=== PATIENT | female | born 1975 | race Hispanic/Latino ===

== ENCOUNTER 2018-02-19 19:24 | Inpatient (IN) | payer MEDICAID ==
[2018-02-19 20:37] LABS: BASO # 0.1 K/uL (0.0-0.2); BASO % 1.5 % (0.0-2.0); EOS % 0.4 % (0.0-4.0); HEMOGLOBIN 10.9 g/dL (11.0-16.0); LYMPH % 41.3 % (20.0-40.0); MEAN CELL VOLUME 78.5 fL (81.0-99.0); MEAN CORPUSCULAR HEMOGLOBIN 25.1 pg (27.0-31.0); MONO # 0.2 K/uL (0.0-0.8); MONO % 4.5 % (0.0-10.0); NEUT # 2.5 K/uL (1.8-7.0); NEUT % 52.3 % (50.0-75.0); RBC 4.34 Mil/uL (3.80-5.20); RED CELL DISTRIBUTION WIDTH 19.1 % (11.5-14.5); WHITE BLOOD COUNT 4.8 K/uL (4.8-10.8)
[2018-02-19 20:40] LABS: HCG,QUALITATIVE URINE NEGATIVE (NEGATIVE)
[2018-02-19 20:43] LABS: SQUAMOUS EPITHIAL 10 /hpf (0-5); URINE BACTERIA FEW (<OCC); URINE BILIRUBIN NEGATIVE (NEGATIVE); URINE BLOOD 3+ (NEGATIVE); URINE CLARITY Hazy (Clear); URINE COLOR Red (YELLOW); URINE GLUCOSE (UA) NORMAL (Normal); URINE LEUKOCYTE ESTERASE 2+ Leu/uL (Negative); URINE PROTEIN 1+ mg/dL (NEGATIVE); URINE UROBILINOGEN NORMAL mg/dL (0.2-1.0)
[2018-02-19 20:47] LABS: BARBITURATES, UR NEGATIVE (NEGATIVE); BENZODIAZEPINES, UR NEGATIVE (NEGATIVE); OPIATES, UR NEGATIVE (NEGATIVE); PHENCYCLIDINE, UR NEGATIVE (NEGATIVE)
--- NOTE | 2018-02-19 20:47 | C.PDOC ---
History Of Present Illness 42 year old female presents to the ED requesting detox for alcohol abuse. Patient is prescreened, states she drinks large volumes of alcohol. Patient reports her last drink was today [employer]. Patient denies SI/HI, hallucinations, injury, fall, trauma. Time Seen by Provider: 02/19/18 20:11 Chief Complaint (Nursing): Substance Abuse History Per: Patient History/Exam Limitations: intoxication Onset/Duration Of Symptoms: Hrs Current Symptoms Are (Timing): Still Present Suicide/Self Injury Attempted (Context): None Modifying Factor(s): Alcohol, Other Associated Symptoms: denies: Depression, Suicidal Thoughts, Suicidal Plan Recent travel outside of the [place]: No Additional History Per: Patient Past Medical History Reviewed: Historical Data, Nursing Documentation, Vital Signs Vital Signs: Last Vital Signs Temp 98.1 F 02/19/18 19:44 Pulse 110 H 02/19/18 19:44 Resp 20 02/19/18 19:44 BP 121/85 02/19/18 19:44 Pulse Ox 97 02/19/18 19:44 - Medical History PMH: Bipolar Disorder Surgical History: No Surg Hx Family History: States: Unknown Family Hx - Social History Hx Alcohol Use: No Hx Substance Use: No - Immunization History Hx Tetanus Toxoid Vaccination: No Hx Influenza Vaccination: No Hx Pneumococcal Vaccination: No Review Of Systems Constitutional: Negative for: Fever, Chills Cardiovascular: Negative for: Chest Pain Respiratory: Negative for: Cough, Shortness of Breath Gastrointestinal: Negative for: Nausea, Vomiting, Abdominal Pain Skin: Negative for: Rash Psych: Negative for: Depression, Suicidal ideation Physical Exam - Physical Exam Appears: Non-toxic, No Acute Distress, Other ( female, AOB, intoxicated) Skin: Normal Color, Warm, Dry Head: Atraumatic, Normacephalic Eye(s): bilateral: Normal Inspection Neck: Normal ROM, Supple Chest: Symmetrical Cardiovascular: Rhythm Regular Respiratory: Normal Breath Sounds, No Rales, No Rhonchi, No Wheezing Gastrointestinal/Abdominal: Soft, No Tenderness, No Guarding, No Rebound Extremity: Normal ROM, No Tenderness, No Swelling Neurological/Psych: Oriented x3, Normal Speech, Normal Cognition Gait: Steady ED Course And Treatment - Laboratory Results Result Diagrams: 02/19/18 20:25 02/19/18 20:25 Lab Interpretation: Abnormal (etoh 362) Urine POC: Negative O2 Sat by Pulse Oximetry: 97 (ON RA) Pulse Ox Interpretation: Normal Progress Note: 0100: pt c/w withdrawal symptoms, librium 50 mg PO ordered Reevaluation Time: 01:13 Reassessment Condition: Improved Medical Decision Making Medical Decision Making: Plan: * Labs * UA * Crisis eval * etoh detox pre-screened pending adm by psych Disposition - Disposition Disposition Time: 01:14 Condition: GOOD Forms: [facility] (Macedonian) - Clinical Impression Clinical Impression: Alcohol abuse - Scribe Statement The provider has reviewed the documentation as recorded by the Scribe Tristian Sadler All medical record entries made by the Scribe were at my direction and personal ly dictated by me. I have reviewed the chart and agree that the record accurately reflects my personal performance of the history, physical exam, medical decision making, and the department course for this patient. I have also personally directed, reviewed, and agree with the discharge instructions and disposition. Physician Patient Turnover Patient Signed Over To: Mariela Flores Handoff Comments: pending Crisis clearing for Detox
[2018-02-19 21:05] LABS: ALB/GLOB RATIO 1.3 (1.0-2.1); ALBUMIN 3.8 g/dL (3.5-5.0); ALT/SGPT 16 U/L (9-52); AST/SGOT 31 U/L (14-36); BLOOD UREA NITROGEN 11 mg/dL (7-17); CALCIUM 8.4 mg/dl (8.6-10.4); GFR NON-AFRICAN AMERICAN > 60
--- NOTE | 2018-02-20 09:41 | PCM.BM ---
<Peyton So - Last Filed: 02/20/18 09:40> Treatment Plan Problems - Problems identified on initial assessmt Alcohol Dependence Date Initiated: 02/20/18 Time Initiated: 04:30 Treatment assets and liabiliti Patient Assests: cooperative, ADL independent Patient Liabilities: substance abuse - Milieu Protocol Maintain good personal hygiene: daily Encourage regular showers, daily Remind patient to perform daily oral care, daily Assist patient to perform ADL's Maintain personal safety: every shift Educate patient to report safety concerns to staff, every shift Monitor environment for contraband/sharps Medication safety: Monitor for expected outcome, potential side effects: every shift, Assess barriers to learning: every shift, Assess readiness for medication education: every shift <Viola Garcia - Last Filed: 02/20/18 14:54> - Diagnosis (1) Alcohol abuse Status: Acute Interventions: 02/20/18 14:55 * Assess 7x/week regarding severity of withdrawal * Educate regarding risks, benefits, side effects and alternatives of medications * Use Motivational Interviewing for abstinence * Use CBT for relapse prevention * Medication management for withdrawal symptoms * Encourage medication assisted treatment * <Kalie Marshall - Last Filed: 02/22/18 08:46> Family Contact Family involvement: Famliy/SO not involved
--- NOTE | 2018-02-20 10:01 | PCM.PSYCH ---
Initial Psychiatric Evaluation - Initial Psychiatric Evaluation Type of Admission: Voluntary Legal Status: Capacity Chief Complaint (in patient's own words): "Alcohol" History of Present Illness and Precipitating Events: Patient seen, chart reviewed, case discussed Patient is a 42-year-old , unemployed female with 3 children, ages 17-21, who is living with a friend, who also drinks alcohol. 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 The patient came in because she relapsed on alcohol recently. The patient had her first drink when was 22, but her drinking became a problem in 2010. The patient states that the father of her children is a functional drinker and was the cause of her drinking. Over the past week, the patient has drunk 4-5 pints of vodka per day, with her last drink yesterday at 5:30 pm. The patient states that when she doesnt drink she gets anxious, upset and the shakes so bad that she is unable to walk. Over the past 2 nights, the patient states that she has felt severe withdrawal symptoms that are close to DTs. The patient denies any heroin, cocaine, marijuana or other pill use but has smoked about 6-7 cigarettes per day for the past year. The patient was in the ICU in September due to alcohol, has been to detox 5 times in the past and rehab 5 times in the past but does not attend any AA meetings. The patient was prescribed Librium in 2015 but the prescribing doctor took her off it because she was taking too much. She also used naltrexone in 2014, which the patient states helped with her cravings. The patients longest sobriety was from October 2016 to May of 2017. In May 2017, the patient relapsed and then was sent to [facility] for 21 days and remained sober until one week ago. She denies any family history of alcohol or drug abuse. The patient states that she has been diagnosed with anxiety for which she takes Buspar, Topamax, and Trazadone. The patient was also seen in a psychiatric clinic in 2016 due to a suicide attempt. She currently denies SI but is "extremely anxious" Past Psych History: Generalized anxiety disorder, depression Past Medical History: denies but had DT like sxs Family Psych History: Mother with anxiety and depression, Son with anxiety Current Medications: Active Medications Generic Name Dose Route Start Last Admin Trade Name Freq PRN Reason Stop Dose Admin Chlordiazepoxide 25 mg 02/20/18 05:42 02/20/18 05:55 Librium PO 25 mg Q4 PRN Administration Symptoms of alcohol withdrawl Chlordiazepoxide 0 mg 02/20/18 10:00 Librium PO 02/24/18 09:59 Q6 KALPESH Taper Clonidine HCl 0.1 mg 02/20/18 04:59 02/20/18 05:55 Catapres PO 0.1 mg Q6 PRN Administration Symptoms of alcohol withdrawl Clonidine HCl 0.1 mg 02/20/18 09:57 Catapres PO Q4H PRN Symptoms of alcohol withdrawl Folic Acid 1 mg 02/20/18 10:00 Folic Acid PO DAILY KALPESH Hydroxyzine HCl 25 mg 02/20/18 05:01 Atarax PO Q6 PRN Anxiety Influenza Virus Vaccine 60 mcg 02/23/18 10:25 Fluzone Quad [id number] IM 02/23/18 10:26 .ONCE ONE Multivitamins 1 tab 02/20/18 10:00 Hexavitamin PO DAILY [facility] Thiamine HCl 100 mg 02/20/18 10:00 Vitamin B1 Tab PO DAILY [facility] Past Psychiatric History - Past Psychiatric History Previous Treatment History: Intensive Outpatient Pertinent Medical Hx (Current Medical&Sleep Prob, Allergies): Allergies Allergy/AdvReac Type Severity Reaction Status Date / Time ondansetron [From Zofran] AdvReac Verified 02/20/18 02:44 Penicillins AdvReac Verified 02/20/18 02:44 Topiramate [Topamax] 100 mg PO HS 02/19/18 Review of Systems - Psychiatric Psychiatric: Abnormal Sleep Pattern, Anhedonia, Anxiety, Behavioral Changes, Change in Appetite, Depression, Difficulty Concentrating, Mood Swings, Panic Attacks. absent: Hallucinations, Homicidal Ideation, Paranoia Mental Status Examination - Personal Presentation Personal Presentation: Looks stated age - Affect Affect: Constricted - Motor Activity Motor Activity: Calm - Reliability in Providing Information Reliability in Providing Information: Good - Speech Speech: Organized - Mood Mood: Depressed, Anxious - Formal Thought Process Formal Thought Process: No Impairment - Cognitive Functions Orientation: Person, Place, Situation, Time Sensorium: Alert Attention/Concentration: Easily distracted Estimate of Intelligence: Average Judgement: Intact, as evidence by: Insight regarding need for hospitalization Memory: Recent intact, as evidence by: Ability to recall events of the day, Remote intact, as evidenced by: Abilit to recall sig. life events - Risk Risk: Withdrawal, Diminished functioning - Strength & Assets Inventory Strength & Assets Inventory: Cooperative - Limitations Limitations: Other DSM 5 DX - DSM 5 DSM 5 Diagnosis: Alcohol withdrawal Alcohol use d/osevere Generalized anxiety disorder Major Depression , recurrent, moderate Tobacco use d/omild - Recommended/Plan of Treatment Treatment Recommendations and Plan of Treatment: Taper with Librium Lexapro for IAN and MDD Gabapenitn for anxiety and wdw Medication for anxiety and depression Gabapentin for augmentation if needed As needed medication All risks, benefits and alternatives of the meds discussed and the patient agreed and understood Attend groups and activities Supportive therapy and psychoeducation [place] for abstinence CBT for relapse prevention Encourage MAT Refer to rehab or IOP, and self-help groups Teach healthy lifestyle methods, i.e. diet, exercise, meditation Smoking cessation with [place] Nicotine patch if needed 35 min Projected ELOS: 4-5 days
[2018-02-20] MEDS: Multiple Vitamins Tab PO SCH (10:22)
[2018-02-21] MEDS: Multiple Vitamins Tab PO SCH (09:07)
--- NOTE | 2018-02-21 14:49 | PCM.PYCHPN ---
Psychiatric Progress Note - Psychiatric Progress Note Patient seen today, length of contact: 18 min Patient Chief Complaint: "I am very anxious" Problems Identified/Issues Discussed: The pt is seen, chart reviewed, case discussed with staff. The pt is compliant with medications and reports no side-effects. Symptoms are improving but needs more time to stabilize. Pt attends groups and activities. Support given, psycho-education provided. After care discussed. Medication Change: Yes (detox changes daily) Medical Record Reviewed: Yes Mental Status Examination - Cognitive Function Orientation: Person, Place, Situation, Time Memory: Intact Attention: Poor Concentration: Poor Association: WNL Fund of Knowledge: WNL - Mood Mood: Depressed, Anxious - Affect Affect: Constricted - Speech Speech: Appropriate - Formal Thought Process Formal Thought Process: No Impairment - Suicidal Ideation Suicidal Ideation: No - Homicidal Ideation Homicidal Ideation: No Goal/Treatment Plan - Goal/Treatment Plan Need for Continued Stay: Discharge may exacerbated symptoms, Severe functional impairment Progress Toward Problem(s) and Goals/Treatment Plan: Taper with Librium Lexapro for IAN and MDD Gabapenitn for anxiety and wdw Medication for anxiety and depression Gabapentin for augmentation if needed As needed medication All risks, benefits and alternatives of the meds discussed and the patient agreed and understood Attend groups and activities Supportive therapy and psychoeducation [place] for abstinence CBT for relapse prevention Encourage MAT Refer to rehab or IOP, and self-help groups Teach healthy lifestyle methods, i.e. diet, exercise, meditation Smoking cessation with [place] Nicotine patch if needed
--- NOTE | 2018-02-22 08:46 | PCM.PYCHPN ---
Psychiatric Progress Note - Psychiatric Progress Note Patient seen today, length of contact: 15 min Patient Chief Complaint: "I am very anxious" Problems Identified/Issues Discussed: The pt is seen, chart reviewed, case discussed with staff. Support and psychoeducation given, CBT and NC used briefly No new symptoms reported, improving slowly and needs more time She is still withdrawing and too anxious, will extend her taper a little No SEs from medications, risks discussed. After care discussed Medication Change: Yes (detox changes daily) Medical Record Reviewed: Yes Mental Status Examination - Cognitive Function Orientation: Person, Place, Situation, Time Memory: Intact Attention: Poor Concentration: Poor Association: WNL Fund of Knowledge: WNL - Mood Mood: Depressed, Anxious - Affect Affect: Constricted - Speech Speech: Appropriate - Formal Thought Process Formal Thought Process: No Impairment - Suicidal Ideation Suicidal Ideation: No - Homicidal Ideation Homicidal Ideation: No Goal/Treatment Plan - Goal/Treatment Plan Need for Continued Stay: Discharge may exacerbated symptoms, Severe functional impairment Progress Toward Problem(s) and Goals/Treatment Plan: Taper with Librium Lexapro for IAN and MDD Gabapenitn for anxiety and wdw Medication for anxiety and depression Gabapentin for augmentation if needed As needed medication All risks, benefits and alternatives of the meds discussed and the patient agreed and understood Attend groups and activities Supportive therapy and psychoeducation [place] for abstinence CBT for relapse prevention Encourage MAT Refer to rehab or IOP, and self-help groups Teach healthy lifestyle methods, i.e. diet, exercise, meditation Smoking cessation with [place] Nicotine patch if needed Estimated Date of D/C: 02/24/18
[2018-02-22] MEDS: Multiple Vitamins Tab PO SCH (09:27)
[2018-02-22] MEDS: Benzocaine/Menthol (Cepacol) Lozenge MT PRN (21:14)
[2018-02-23] MEDS: Multiple Vitamins Tab PO SCH (09:29)
[2018-02-23] MEDS: Benzocaine/Menthol (Cepacol) Lozenge MT PRN ×2 (10:18→19:05)
[2018-02-23] MEDS ORDERED: Influenza Vaccine 60 MCG/0.5 ML SYR (3 yr & up) IM ONE (10:25)
[2018-02-23] MEDS ORDERED: Pneumococcal 23-Valent Vaccine IM ONE (10:32)
--- NOTE | 2018-02-23 11:12 | PCM.PYCHPN ---
Psychiatric Progress Note - Psychiatric Progress Note Patient seen today, length of contact: 15 min Patient Chief Complaint: I am feeling little better Problems Identified/Issues Discussed: Patient seen and evaluated, chart reviewed and discussed with the nurse. Pt reports improvement in her mood, and but still reports withdrawal symptoms, but still reports nausea, sweating, headaches, and anxiety. Patient is compliant with medications and denies any side effects. Symptoms are improving but pt needs more time to stabilize. Support and psychoeducation given. Medication Change: Yes (detox changes daily) Medical Record Reviewed: Yes Mental Status Examination - Cognitive Function Orientation: Person, Place, Situation, Time Memory: Intact Attention: Poor Concentration: Poor Association: WNL Fund of Knowledge: WNL - Mood Mood: Depressed, Anxious - Affect Affect: Constricted - Speech Speech: Appropriate - Formal Thought Process Formal Thought Process: No Impairment - Suicidal Ideation Suicidal Ideation: No - Homicidal Ideation Homicidal Ideation: No Goal/Treatment Plan - Goal/Treatment Plan Need for Continued Stay: Discharge may exacerbated symptoms, Severe functional impairment Progress Toward Problem(s) and Goals/Treatment Plan: Taper with Librium Lexapro for IAN and MDD Gabapenitn for anxiety and wdw Medication for anxiety and depression Gabapentin for augmentation if needed As needed medication All risks, benefits and alternatives of the meds discussed and the patient agreed and understood Attend groups and activities Supportive therapy and psychoeducation [place] for abstinence CBT for relapse prevention Encourage MAT Refer to rehab or IOP, and self-help groups Teach healthy lifestyle methods, i.e. diet, exercise, meditation Smoking cessation with [place] Nicotine patch if needed Estimated Date of D/C: 02/24/18
[2018-02-23] MEDS ORDERED: Aluminum Hydroxide/Magnesium Hydroxide Susp (30 mL) PO PRN (20:12)
[2018-02-24] MEDS: Multiple Vitamins Tab PO SCH (09:26)
[2018-02-24] MEDS ORDERED: Pneumococcal 23-Valent Vaccine IM ONE (10:26)
[2018-02-24 11:25] VITALS: BP 111/77; PULSE 77; RESP 20; TEMP 98.7; O2SAT 98
--- NOTE | 2018-02-24 12:39 | PCM.PYCHDC ---
Mental Status Examination - Mental Status Examination Orientation: Person, Place, Situation, Time Memory: Intact Mood: Neutral Affect: Other (Appropriate) Speech: Appropriate Attention: WNL Concentration: WNL Association: WNL Fund of Knowledge: WNL Formal Thought Process: No Impairment Description of patient's judgement and insight: Fair Psychotic Thoughts and Behaviors: None Suicidal Ideation: No Current Homicidal Ideation?: No Discharge Summary - Discharge Note Reason for Hospitalization: Alcohol use disorder severe. Generalized anxiety disorder. Major depressive disorder bordered Laboratory Data: Reviewed Consultations:: List each consultation separately and include: 1. Reason for request. 2. Findings. 3. Follow-up Summary of Hospital Course include:: 1. Description of specific treatment plan utilized for patients during their course of treatmen. 2. Summarize the time- course for resolution of acute symptoms and/or regressed behaviors. 3. Describe issues identified and worked on during hospitalization. 4. Describe medication utilized. 5. Describe medical problems identified and treated. 6. Reassessment of suicide risk Summary of Hospital Course: Patient is a 42-year-old , unemployed female with 3 children, ages 17-21, who is living with a friend, who also drinks alcohol. 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 The patient came in because she relapsed on alcohol recently. The patient had her first drink when was 22, but her drinking became a problem in 2010. The patient states that the father of her children is a functional drinker and was the cause of her drinking. Over the past week, the patient has drunk 4-5 pints of vodka per day, with her last drink yesterday at 5:30 pm. The patient states that when she doesnt drink she gets anxious, upset and the shakes so bad that she is unable to walk. Over the past 2 nights, the patient states that she has felt severe withdrawal symptoms that are close to DTs. The patient denies any heroin, cocaine, marijuana or other pill use but has smoked about 6-7 cigarettes per day for the past year. The patient was in the ICU in September due to alcohol, has been to detox 5 times in the past and rehab 5 times in the past but does not attend any AA meetings. The patient was prescribed Librium in 2015 but the prescribing doctor took her off it because she was taking too much. She also used naltrexone in 2014, which the patient states helped with her cravings. The patients longest sobriety was from October 2016 to May of 2017. In May 2017, the patient relapsed and then was sent to [facility] for 21 days and remained sober until one week ago. She denies any family history of alcohol or drug abuse. The patient states that she has been diagnosed with anxiety for which she takes Buspar, Topamax, and Trazadone. The patient was also seen in a psychiatric clinic in 2016 due to a suicide attempt. She currently denies SI but is "extremely anxious" Past Psych History: Generalized anxiety disorder, depression Past Medical History: denies but had DT like sxs Family Psych History: Mother with anxiety and depression, Son with anxiety During her stay in the hospital patient was treated with Librium taper for alcohol withdrawal symptoms. Patient was also treated with citalopram, gabapentin, naltrexone. Patient was attending groups and other activities on the unit. With above treatment patient started feeling better, had no withdrawal symptoms and ready for discharge from the hospital. At the time of evaluation and discharge, patient was awake, alert and oriented x3, calm and cooperative, had no delusions, no auditory or visual hallucinations, no suicidal ideations or homicidal ideations. Patient was discharged in stable condition. - Final Diagnosis (DSM 5) Condition upon Discharge: FAIR Disposition: HOME/ ROUTINE Prescriptions/Medication Reconciliation: Escitalopram [Lexapro] 10 mg PO DAILY #30 tab Gabapentin [Neurontin] 300 mg PO TID #90 cap Naltrexone [Revia] 50 mg PO DAILY #30 tab Nitrofurantoin Macrocrystals [Macrobid] 100 mg PO Q12H #4 cap - Smoking Cessation Smoking Cessation Medication prescribed: Yes - Antipsychotic Medications Pt discharged on 2 or more routine antipsychotic medications: No
== END 2018-02-24 11:20 | disposition home or self-care (01) | DRG 430 ==
LOC: C.ER 19:24 → C.7D 02-20 03:20
PROVIDERS: ADMIT Psychiatry & Neurology Psychiatry; ATTEND Psychiatry & Neurology Psychiatry
PROC: GZ56ZZZ Individual Psychotherapy, Supportive (ICD-10-PCS; principal; 2018-02-20)
DX: F33.1 Major depressive disorder, recurrent, moderate (principal); F10.231 Alcohol dependence with withdrawal delirium; F41.1 Generalized anxiety disorder; Z72.0 Tobacco use; Y90.8 Blood alcohol level of 240 mg/100 ml or more